=== PATIENT | male | born 1985 | race Caucasian/White ===

== ENCOUNTER 2017-10-22 12:47 | Emergency (ER) | payer SELFPAY ==
[~2017-10-22] VITALS: Ht 190.5 cm; Wt 90.7 kg
[~2017-10-22 12:47] MED LIST: BUPR8TAB7 PO; DOCU-416 PO; GOLYTE PO; MIR; NITR60OI TD; POLY119P24 PO
--- NOTE | 2017-10-22 12:50 | ER Report ---
History and Physical Time Seen By MD: 12:50 HPI/ROS CHIEF COMPLAINT: Constipation HISTORY OF PRESENT ILLNESS: Patient is a 32-year-old male who presents to emergency department with 3 days of constipation and abdominal cramping. He states that he relapsed on heroin over this weekend he is currently back on his Suboxone as of Thursday. He is had multiple emergency department visits most recent was 2014 for a very similar type presentation. He denies fevers or chills he denies chest pain or shortness of breath. Denies difficulty with urination. REVIEW OF SYSTEMS: Constitutional: No fever, no chills. Eyes: No discharge. ENT: No sore throat. Cardiovascular: No chest pain, no palpitations. Respiratory: No cough, no shortness of breath. Gastrointestinal: Abdominal cramping, nausea no vomiting Genitourinary: No hematuria. Musculoskeletal: No back pain. Skin: No rashes. Neurological: No headache. Allergies: Coded Allergies: alcohol (Verified Allergy, Mild, MIGRAINE, 07/14/15) Home Meds Active Scripts Sulfamethoxazole/Trimet 800-160 Mg Tab (BACTRIM DS TABLET) 1 Each Tablet, 2 TAB PO Q12H, #28 MG 0 Refills TAKE ONE TABLET BY MOUTH EVERY TWELVE HOURS Prov:DARSHAN WONG MD 10/22/17 Reported Medications Buprenorphine Hcl/Naloxone Hcl (SUBOXONE 4 MG-1 MG SL FILM) 1 Each Film, 1 EACH SL BID, FILM 10/22/17 Discontinued Scripts Peg/Electrolytes (GOLYTELY SOLUTION) 4,000 Ml Soln, 4000 ML PO ONCE, #1 GAL Prov:JORDAN ALW 07/14/15 Past Medical/Surgical History Heroin abuse Hx Smoking: Yes (1/2 PPD) Smoking Status: Current: Every Day Smoker Exposure to Second Hand Smoke?: Yes Hx Substance Use Disorder: Yes (HEROIN/OPIOD ABUSE) Hx Alcohol Use: No Constitutional Vital Sign - Last 24 Hours 10/22/17 12:55 Temp 97.4 Pulse 132 Resp 22 B/P (MAP) 146/107 Pulse Ox 93 O2 Delivery Room Air Physical Exam General Appearance: The patient is alert, has no immediate need for airway protection and no signs of toxicity. Eyes: Pupils equal and round no pallor or injection. ENT, Mouth: Mucous membranes are moist. Respiratory: There are no retractions, lungs are clear to auscultation. Cardiovascular: Regular rate and rhythm. [ ] Gastrointestinal: Abdomen is soft and non tender, no masses, bowel sounds normal. Neurological: Awake alert nontoxic Skin: Warm and dry, no rashes. There is some swelling and erythema to the right hand him just proximal to the 1st web space where there to be a track kristin. Musculoskeletal: Neck is supple non tender. Extremities are nontender, nonswollen and have full range of motion. Medical Decision Making ED Course/Re-evaluation ED Course 10/22/2017 1:52:57 pm plan at this time will be soapsuds enema Re-evaluation 10/22/2017 2:04:19 pm patient had large bowel movement after soapsuds enema feels 100% better. We'll discharge home. We will also start antibiotics for cellulitis to the right hand patient was counseled to return if symptoms worsen at all. Decision to Disposition Date: Oct 22, 2017 Decision to Disposition Time: 14:03 Depart Departure Latest Vital Signs Vital Signs Date Time Temp Pulse Resp B/P (MAP) Pulse Ox O2 Delivery O2 Flow Rate FiO2 10/22/17 12:55 97.4 132 22 146/107 93 Room Air Impression: Primary Impression: Constipation Condition: Improved Disposition: HOME OR SELF-CARE Referrals: KARSTEN MIKEP (PCP) New Scripts Sulfamethoxazole/Trimet 800-160 Mg Tab (BACTRIM DS TABLET) 1 Each Tablet 2 TAB PO Q12H, #28 MG 0 Refills TAKE ONE TABLET BY MOUTH EVERY TWELVE HOURS Prov: DARSHAN WONG MD 10/22/17 Patient Instructions: Cellulitis (ED), Constipation (ED) Problem Qualifiers Primary Impression: Constipation Constipation type: unspecified constipation type Qualified Codes: K59.00 - Constipation, unspecified DARSHAN WONG MD Oct 22, 2017 12:50
[2017-10-22] MEDS ORDERED: BUPR1FIL SL (13:06)
[2017-10-22] MEDS ORDERED: KETOROLAC 15 MG/ML VIAL IVP ONE (13:20)
[2017-10-22 14:00] VITALS: BP 136/76
[2017-10-22] MEDS ORDERED: SULF-198 PO (14:08)
== END 2017-10-22 14:14 | disposition home or self-care (01) ==
LOC: ER 12:53
DX: K59.00 Constipation, unspecified (principal)
CPT/HCPCS: 96374; 99284; J1885

== ENCOUNTER 2018-10-08 01:48 | Emergency (ER) | payer MEDICAID ==
[~2018-10-08 01:48] MED LIST changes: +BUPR1FIL SL; +SULF-198 PO
--- NOTE | 2018-10-08 01:55 | ER Report ---
History and Physical Time Seen By MD: 01:54 HPI/ROS CHIEF COMPLAINT: Constipation HISTORY OF PRESENT ILLNESS: 33 year-old male presents with no bowel movement for 2 days. Patient has a history chronic constipation secondary to opioid abuse. He has numerous previous ER visits. She describes severe crampy pain. REVIEW OF SYSTEMS: Respiratory: No cough, no dyspnea. Cardiovascular: No chest pain, no palpitations. Gastrointestinal: As above Musculoskeletal: No back pain. Allergies: Coded Allergies: alcohol (Verified Allergy, Mild, MIGRAINE, 07/14/15) Home Meds Active Scripts Sulfamethoxazole/Trimet 800-160 Mg Tab (BACTRIM DS TABLET) 1 Each Tablet, 2 TAB PO Q12H, #28 MG 0 Refills TAKE ONE TABLET BY MOUTH EVERY TWELVE HOURS Prov:DARSHAN WONG MD 10/22/17 Reported Medications Buprenorphine Hcl/Naloxone Hcl (SUBOXONE 4 MG-1 MG SL FILM) 1 Each Film, 1 EACH SL BID, FILM 10/22/17 Hx Smoking: Yes (/2 PPD) Smoking Status: Current: Every Day Smoker Exposure to Second Hand Smoke?: Yes Hx Substance Use Disorder: Yes (HEROIN/OPIATE ABUSE) Hx Alcohol Use: Yes (OCC) Constitutional Vital Sign - Last 24 Hours 10/08/18 10/08/18 01:56 03:00 Temp 97.9 Pulse 112 98 Resp 16 B/P (MAP) 133/110 148/89 (108) Pulse Ox 93 O2 Delivery Room Air Physical Exam General Appearance: The patient is alert, has no immediate need for airway protection and no current signs of toxicity. Vital signs stable, afebrile, pulse ox normal Eyes: Pupils equal and round no injection. Respiratory: Chest is non tender, lungs are clear to auscultation. Cardiac: regular rate and rhythm Gastrointestinal: Abdomen is soft and non tender, no masses, bowel sounds normal. Abdomen is distended, Musculoskeletal: Neck: Neck is supple and non tender. Extremities have full range of motion and are non tender., Track hunter noted on left arm Skin: No rashes or lesions. DIFFERENTIAL DIAGNOSIS: After history and physical exam differential diagnosis was considered for abdominal pain including but not limited to appendicitis, cholecystitis, gastritis, constipation and urinary tract infection. Medical Decision Making EKG/Imaging Imaging X-ray: KUB was obtained. I viewed the images myself on the PACS system. My interpretation of the images is: Gross fecal stasis throughout the colon. The radiologist interpretation had no clinically significant variation from this interpretation. ED Course/Re-evaluation ED Course Patient was admitted to an examination room. H&P was done. The differential diagnosis was considered. Patient with constipation. KUB was performed, which confirms constipation. A soapsuds enema was administered with good results. Patient's discharged home and advised a MiraLAX plan were he's taking MiraLAX 2- 3 times per day to keep his bowels regular. Decision to Disposition Date: Oct 08, 2018 Decision to Disposition Time: 02:23 Depart Departure Latest Vital Signs Vital Signs Date Time Temp Pulse Resp B/P (MAP) Pulse Ox O2 Delivery O2 Flow Rate FiO2 10/08/18 03:00 98 148/89 (108) 10/08/18 01:56 97.9 16 93 Room Air Impression: Primary Impression: Constipation Additional Impression: Heroin abuse Condition: Improved Disposition: HOME OR SELF-CARE Referrals: KARSTEN MIKE (PCP) Patient Instructions: Constipation (ED) Additional Instructions: No solid food for 48-72 hours Take MiraLAX 2-3 times per day Follow-up with primary care if unimproved in 3-5 days Problem Qualifiers Primary Impression: Constipation Constipation type: unspecified constipation type Qualified Codes: K59.00 - Constipation, unspecified YAMIL HUNG DO Oct 08, 2018 01:55
--- NOTE | 2018-10-08 02:40 | RADIOLOGY IMAGING REPORT ---
FAC[facility]: [facility] PATIENT NAME: Andrew Vázquez : 1985 MR: [id number] V: [id number] EXAM DATE: ORDERING PHYSICIAN: YAMIL HUNG TECHNOLOGIST: [place] [facility] [place]: Andrew Vázquez : 1985 Visit/Account:[id number] Date of Sevice: 10/08/2018 INDICATION: Constipation. EXAM DATE: 10/08/2018 2:09 AM COMPARISON: 07/14/2015. FINDINGS: 2 supine AP images of the abdomen. The lungs are well-expanded and clear. No pleural effusion or pneumothorax. Heart size is normal. There is a large amount of stool in the sigmoid colon and rectum. Bowel gas pattern is nonobstructiv e. No pneumatosis, pneumoperitoneum or portal venous gas. No evidence of large volume ascites or mass . No acute osseous abnormality. IMPRESSION: Large amount of stool in the sigmoid colon and rectum with possible component of impactio n. Report Dictated By: Jorge Bedoya MD at 10/08/2018 2:34 AM Report E-Signed By: Jorge Bedoya MD at 10/08/2018 2:36 AM WSN:[id number]
[2018-10-08 03:00] VITALS: BP 148/89
== END 2018-10-08 03:45 | disposition home or self-care (01) ==
LOC: ER 02:02
DX: K59.00 Constipation, unspecified (principal); F11.10 Opioid abuse, uncomplicated
CPT/HCPCS: 74018; 99283